=== PATIENT | female | born 1935 | race Hispanic/Latino ===

== ENCOUNTER 2018-01-08 08:20 | Emergency (ER) | payer MEDICARE ==
[2018-01-08 09:19] LABS: BASOPHILS % (AUTO) 0.4 % (0.0-5.0); EOSINOPHILS % (AUTO) 2.1 % (0.0-8.0); HEMATOCRIT 37.9 % (36-48); LYMPHOCYTES % (AUTO) 10.4 % (21.0-51.0); MEAN CORPUSCULAR HEMOGLOBIN 28.3 pg (27.0-33.0); MEAN CORPUSCULAR HGB CONC 33.7 g/dL (32.0-36.0); MEAN CORPUSCULAR VOLUME 83.9 fL (79-99); MONOCYTES % (AUTO) 9.4 % (3.0-13.0); NEUTROPHILS % (AUTO) 77.7 % (40.0-77.0); PLATELET COUNT (AUTO) 251 K/uL (130-400); RED BLOOD CELL COUNT(AUTO) 4.52 MIL/uL (4.00-5.50); RED CELL DISTRIBUTION WIDTH 14.2 % (11.0-15.5); WHITE BLOOD COUNT (AUTO) 9.4 K/uL (4.8-10.8)
[2018-01-08 09:39] LABS: B-TYPE NATRIURETIC PEPTIDE 102 pg/mL (0-100)
[2018-01-08 09:41] LABS: CREATININE 0.5 mg/dL (0.5-1.5); POTASSIUM 3.6 mmol/L (3.5-5.1)
[2018-01-08 09:57] LABS: ALBUMIN 3.1 g/dL (3.5-5.0); BILIRUBIN,TOTAL 0.7 mg/dL (0.2-1.0)
[2018-01-08] MEDS ORDERED: AZITHROMYCIN 250 MG TABLET PO ONE (10:09)
[2018-01-08] MEDS ORDERED: IPRATROPIUM/ALBUTEROL SULFATE 3 ML SOLUTION IH ONE (10:18)
== END 2018-01-08 10:40 | disposition home or self-care (01) ==
LOC: EDH 08:20
DX: J20.9 Acute bronchitis, unspecified (principal); I10 Essential (primary) hypertension; Z86.73 Personal history of transient ischemic attack (TIA), and cerebral infarction without residual deficits; Z95.818 Presence of other cardiac implants and grafts
CPT/HCPCS: 36415; 71045; 80053; 82550; 82553; 83605; 83880; 84484; 85025; 87040; 87804; 93005; 94640

== ENCOUNTER 2021-04-09 10:42 | Emergency (ER) | payer MEDICARE ==
[~2021-04-09] VITALS: Ht 160 cm; Wt 72.1 kg
[2021-04-09 10:44] VITALS: BP 134/82
== END 2021-04-09 13:13 | disposition left against medical advice (07) ==
LOC: EDH 10:42
DX: M25.511 Pain in right shoulder (principal); Z53.21 Procedure and treatment not carried out due to patient leaving prior to being seen by health care provider

== ENCOUNTER 2022-01-23 09:25 | Emergency (ER) | payer MEDICARE ==
[~2022-01-23] VITALS: Ht 157.5 cm; Wt 68.9 kg
[2022-01-23] MEDS ORDERED: ERYT30GE8 TP (09:42)
[2022-01-23 09:44] VITALS: BP 146/78
== END 2022-01-23 10:01 | disposition home or self-care (01) ==
LOC: EDH 09:25
DX: L08.1 Erythrasma (principal); Z88.8 Allergy status to other drugs, medicaments and biological substances; Z91.040 Latex allergy status

== ENCOUNTER → 2023-03-22 | Emergency (ER) | payer MEDICARE ==
[~2023-03-22] VITALS: Ht 160 cm; Wt 68.0 kg
[~2023-03-22] MED LIST: ERYT30GE8 TP
[2023-03-22 10:00] VITALS: BP 130/69
[2023-03-22 10:32] LABS: BASOPHILS % (AUTO) 0.9 % (0.0-5.0); EOSINOPHILS % (AUTO) 2.4 % (0.0-8.0); HEMATOCRIT 38.1 % (36-48); LYMPHOCYTES % (AUTO) 18.9 % (21.0-51.0); MEAN CORPUSCULAR HEMOGLOBIN 27.8 pg (27.0-33.0); MEAN CORPUSCULAR HGB CONC 33.3 g/dL (32.0-36.0); MEAN CORPUSCULAR VOLUME 83.4 fL (79-99); MONOCYTES % (AUTO) 7.8 % (3.0-13.0); NEUTROPHILS % (AUTO) 69.6 % (40.0-77.0); PLATELET COUNT (AUTO) 281 K/uL (130-400); RED BLOOD CELL COUNT(AUTO) 4.57 MIL/uL (4.00-5.50); RED CELL DISTRIBUTION WIDTH 13.8 % (11.0-15.5); WHITE BLOOD COUNT (AUTO) 9.2 K/uL (4.8-10.8)
[2023-03-22 10:42] LABS: CREATININE 0.5 mg/dL (0.5-1.5)
[2023-03-22 10:46] LABS: ALBUMIN 3.2 g/dL (3.5-5.0); MAGNESIUM 1.9 mg/dL (1.80-2.40); TOTAL PROTEIN, SERUM 6.4 g/dL (6.0-8.3)
[2023-03-22 11:16] LABS: B-TYPE NATRIURETIC PEPTIDE 188 pg/mL (0-100)
== END ==
LOC: EDH 09:58
DX: R60.0 Localized edema (principal); E87.1 Hypo-osmolality and hyponatremia; I10 Essential (primary) hypertension; Z88.8 Allergy status to other drugs, medicaments and biological substances; Z90.12 Acquired absence of left breast and nipple
CPT/HCPCS: 36415; 71045; 80053; 82550; 83735; 83880; 84484; 85025; 93005

== ENCOUNTER 2023-08-30 09:39 | Emergency (ER) | payer MEDICARE ==
[~2023-08-30] VITALS: Ht 160 cm; Wt 68.0 kg
[2023-08-30 10:24] LABS: SARS-CoV-2, RNA, NAAT NEGATIVE SARS CoV-2 (NEGATIVE)
[2023-08-30 10:29] LABS: INFLUENZA TYPE A Negative For Type A (NEGATIVE); INFLUENZA TYPE B Negative For Type B (NEGATIVE)
[2023-08-30] MEDS ORDERED: CETI5TAB12 PO (11:48)
[2023-08-30] MEDS ORDERED: SODI30SP3 NS (11:48)
[2023-08-30] MEDS ORDERED: BENZ-39 PO (11:48)
[2023-08-30 11:58] VITALS: BP 141/70; PULSE 71; RESP 18; O2SAT 98
== END 2023-08-30 12:15 | disposition home or self-care (01) ==
LOC: EDH 09:39
DX: J06.9 Acute upper respiratory infection, unspecified (principal); I10 Essential (primary) hypertension; Z20.822 Contact with and (suspected) exposure to COVID-19; Z90.710 Acquired absence of both cervix and uterus; Z98.890 Other specified postprocedural states; Z85.3 Personal history of malignant neoplasm of breast; Z88.8 Allergy status to other drugs, medicaments and biological substances
CPT/HCPCS: 99285; 71045; 87635; 87804 ×2; 93005; C9803

== ENCOUNTER 2024-02-01 09:24 | Emergency (ER) | payer MEDICARE ==
[~2024-02-01] VITALS: Ht 160 cm; Wt 68.0 kg
[~2024-02-01 09:24] MED LIST changes: +BENZ-39 PO; +CETI5TAB12 PO; +SODI30SP3 NS
[2024-02-01 09:25] VITALS: BP 141/66; PULSE 82; RESP 18
[2024-02-01] MEDS: ACETAMINOPHEN WITH CODEINE 1 TAB TAB PO ONE (10:20)
[2024-02-01] MEDS ORDERED: CLIN-141 PO (10:21)
[2024-02-01] MEDS ORDERED: ACYC30OI2 TP (10:21)
[2024-02-01] MEDS ORDERED: FAMC500T8 PO (10:21)
== END 2024-02-01 10:55 | disposition home or self-care (01) ==
LOC: EDH 09:24
DX: B02.29 Other postherpetic nervous system involvement (principal); G62.9 Polyneuropathy, unspecified; I10 Essential (primary) hypertension; Z98.890 Other specified postprocedural states; Z79.899 Other long term (current) drug therapy; Z90.12 Acquired absence of left breast and nipple; Z90.710 Acquired absence of both cervix and uterus; Z85.3 Personal history of malignant neoplasm of breast; Z88.8 Allergy status to other drugs, medicaments and biological substances; Z91.040 Latex allergy status

== ENCOUNTER 2024-07-16 15:24 | Emergency (ER) | payer MEDICARE ==
[~2024-07-16] VITALS: Ht 165.1 cm; Wt 64.9 kg
[~2024-07-16 15:24] MED LIST changes: +ACYC30OI2 TP; +CLIN-141 PO; +FAMC500T8 PO
[2024-07-16 16:24] LABS: BASOPHILS # (AUTO) 0.07 K/uL (0.00-0.20); BASOPHILS % (AUTO) 0.4 % (0.0-5.0); EOSINOPHILS # (AUTO) 0.05 K/uL (0.00-0.70); EOSINOPHILS % (AUTO) 0.3 % (0.0-8.0); HEMATOCRIT 35.5 % (36-48); IMMATURE GRANULOCYTE ABSOLUTE 0.51 K/uL (0-1); LYMPHOCYTES # (AUTO) 0.9 K/uL (1.0-4.8); MEAN CORPUSCULAR HEMOGLOBIN 29.1 pg (27.0-33.0); MEAN CORPUSCULAR HGB CONC 34.9 g/dL (32.0-36.0); MEAN CORPUSCULAR VOLUME 83.3 fL (79-99); MONOCYTES # (AUTO) 1.6 K/uL (0.1-1.0); MONOCYTES % (AUTO) 9.1 % (3.0-13.0); NEUTROPHILS # (AUTO) 14.3 K/uL (1.8-7.7); NEUTROPHILS % (AUTO) 82.3 % (40.0-77.0); PLATELET COUNT (AUTO) 250 K/uL (130-400); RED BLOOD CELL COUNT(AUTO) 4.26 MIL/uL (4.00-5.50); RED CELL DISTRIBUTION WIDTH 14.4 % (11.0-15.5); WHITE BLOOD COUNT (AUTO) 17.4 K/uL (4.8-10.8)
[2024-07-16] MEDS: AZITHROMYCIN 500MG+NS 250ML 250 ML IVPB SCH (16:41)
[2024-07-16] MEDS: LACTATED RINGERS 1000ML 1,000 ML IV ONE (16:41)
[2024-07-16] MEDS: Solu-medROL 125MG VIAL IVP ONE (16:42)
[2024-07-16] MEDS: cefTRIAXone 1G VIAL IVPB ONE (16:42)
[2024-07-16 16:46] LABS: CREATININE 0.4 mg/dL (0.5-1.0); POTASSIUM 4.3 mmol/L (3.5-5.1)
[2024-07-16 16:50] LABS: B-TYPE NATRIURETIC PEPTIDE 138 pg/mL (0-100)
[2024-07-16] MEDS: ALBUTEROL 0.083% 2.5 MG/3 ML INH IH ONE (17:01)
[2024-07-16] MEDS: IpraTROPium 0.5 MG/2.5 ML INH IH ONE (17:01)
[2024-07-16 17:02] VITALS: PULSE 96; RESP 18
[2024-07-16] MEDS ORDERED: AZIT250T9 PO (17:47)
[2024-07-16] MEDS ORDERED: METH4TAB3 PO (17:47)
[2024-07-16] MEDS ORDERED: CEFP200T14 PO (17:47)
[2024-07-16 19:02] VITALS: BP 124/61; PULSE 100; RESP 22; TEMP 98.7; O2SAT 95
== END 2024-07-16 20:17 | disposition home or self-care (01) ==
LOC: EDH 15:24
DX: J18.9 Pneumonia, unspecified organism (principal); R09.02 Hypoxemia; E86.0 Dehydration; E87.1 Hypo-osmolality and hyponatremia; J44.1 Chronic obstructive pulmonary disease with (acute) exacerbation; I11.9 Hypertensive heart disease without heart failure; Z86.73 Personal history of transient ischemic attack (TIA), and cerebral infarction without residual deficits; Z88.8 Allergy status to other drugs, medicaments and biological substances; Z91.041 Radiographic dye allergy status; Z91.040 Latex allergy status; Z79.899 Other long term (current) drug therapy; Z85.3 Personal history of malignant neoplasm of breast; Z90.710 Acquired absence of both cervix and uterus; Z90.12 Acquired absence of left breast and nipple
CPT/HCPCS: 99291; 96365; 96375; 82550; 84484; 80048; 83880; 85025; 36415; 71045; 96368; 93005; 94640; J7120; J2919; J0696; J0456